=== PATIENT | female | born 1985 | race Caucasian/White ===

== ENCOUNTER 2020-02-05 17:21 | Emergency (ER) | payer OTHER, SELFPAY ==
--- NOTE | 2020-02-05 17:26 | ED.FEMALEGU ---
HPI - Female Genitourinary General Chief complaint: Urogenital-Female Stated complaint: low back pain/uti symptoms Source: patient and RN notes reviewed Limitations: no limitations History of Present Illness HPI Narrative: The obese patient, previously healthy on no meds, presents with urinary problems. Patient states she has a completely new onset of a couple day history of urinary frequency, urgency and dysuria associated with mild low back pain. No fever measured [but 100.5 at triage intake] , vaginal discharge, blood, abdomnal pain, N/V/D; symptoms are mild worse with micturition Related Data Home Medications Medication Instructions Recorded Confirmed citalopram 40 mg PO DAILY 02/05/20 02/05/20 Allergies Allergy/AdvReac Type Severity Reaction Status Date / Time tetracycline Allergy Unknown Hives Verified 02/05/20 17:27 amoxicillin Allergy Hives Verified 02/05/20 17:27 PMFSH Comments At time of signature, agree with nursing past medical, surgical, social and family history. There is no relevant family history pertinent to the presenting complaint Exam Narrative: Exam Narrative: General Appearance: Well appearing,, Conjunctiva clear Ears: External ear normal Nose: Normal nose Mouth/Throat: Normal appearing, Supple Respiratory: Airway patent, No respiratory distress Abdomen: Soft, Non-tender, no CVAT Musculoskeletal: Full ROM Skin: Warm, Dry Neurological: A&O x3, , Normal affect Course Vital Signs Vital signs: Vital Signs Temperature 98.7 F 02/05/20 17:27 Pulse Rate 102 H 02/05/20 17:27 Respiratory Rate 20 02/05/20 17:27 Blood Pressure 135/82 02/05/20 17:27 Pulse Oximetry 98 02/05/20 17:27 Temperature 98.7 F 02/05/20 17:27 Pulse Rate 102 H 02/05/20 17:27 Respiratory Rate 20 02/05/20 17:27 Blood Pressure 135/82 02/05/20 17:27 Pulse Oximetry 98 02/05/20 17:27 MDM - Female Genitourinary Lab Data Labs: Urine Glucose Negative Reference Range: Negative Urine Bilirubin Negative Reference Range: Negative Urine Ketone Negative Reference Range: Negative Urine Specific [place] 1.020 Reference Range:1.001-1.035 Urine Blood 2+ Reference Range: Negative * * Urine pH 5.5 Reference Range: 5.0-9.0 Urine Protein 2+ Reference Range: Negative Urine Urobilinogen 0.2 Reference Range: 0.2-1.0 Urine Nitrate Positive Reference Range: Negative Urine Leukocyte 3+ Reference Range: Negative Urine Color Yellow Reference Range: Yellow Urine Characteristics Cloudy Urine Characteristics Cloudy Discharge Plan Discharge Clinical Impression: Urinary tract infection Qualifiers: Urinary tract infection type: acute cystitis Hematuria presence: without hematuria Qualified Code(s): N30.00 - Acute cystitis without hematuria Patient Disposition: Home, Self-Care Condition: Stable Instructions: Antibiotic Form, Urinary Tract Infection in Women (ED) Prescriptions: New phenazopyridine [Pyridium] 100 mg tablet 100 mg PO DAILY PRN (Reason: pain) Qty: 14 RF:
[2020-02-05 17:27] VITALS: BP 135/82; PULSE 102; RESP 20; TEMP 37.1; O2SAT 98
== END 2020-02-05 17:50 | disposition home or self-care (01) ==
PROVIDERS: Emergency Provider Emergency Medicine; PCP Physician Assistant
DX: N30.00 Acute cystitis without hematuria (principal)
CPT/HCPCS: 81003; 87077; 87086; 87088; 87186; 99203; G0463